=== PATIENT | female | born 1995 | race African-American/Black ===

== ENCOUNTER 2019-01-14 13:00 | Outpatient (CLI) | payer BC ==
--- NOTE | 2019-01-14 14:33 | ULT ---
THYROID ULTRASOUND: History: Thyroid nodule. FINDINGS: Real-time imaging of the right and left lobes of the thyroid was performed. The right lobe measures 1 .2 x 2 x 4.3 and the left lobe 1.1 x 1.8 x 3.9. No thyroid nodule is visualized. IMPRESSION: Unremarkable thyroid ultrasound. POS: [facility]
== END 2019-01-14 13:01 | disposition home or self-care (01) ==
LOC: BICULT 13:00
PROVIDERS: ATTEND Family Medicine
DX: E04.1 Nontoxic single thyroid nodule (principal)
CPT/HCPCS: 76536